=== PATIENT | male | born 1990 | race Caucasian/White ===

== ENCOUNTER 2020-03-02 19:43 | Emergency (ER) | payer SELFPAY ==
[2020-03-02] MEDS ORDERED: TORAdol 30 mg Injection IM ONE (20:22)
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
[2020-03-02] MEDS ORDERED: TORAdol 30 mg Injection ONE (20:53)
[2020-03-02 21:22] VITALS: O2SAT 98
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
[2020-03-02 21:44] VITALS: BP 114/65; PULSE 90
== END 2020-03-02 21:45 | disposition home or self-care (01) ==
LOC: ED 19:43
DX: S46.912A Strain of unspecified muscle, fascia and tendon at shoulder and upper arm level, left arm, initial encounter (principal); V53 Occupant of pick-up truck or van injured in collision with car, pick-up truck or van
CPT/HCPCS: 73030; 96372; 99284; J1885

== ENCOUNTER 2021-09-28 14:22 | Emergency (ER) | payer MEDICAID ==
[2021-09-28] MEDS ORDERED: solu-MEDROL 125 MG, Sterile H2O 10 ml 2 ML IV ONE ×2 (14:44)
[2021-09-28] MEDS ORDERED: DUONEB 0.5-3 MG/3 ml Neb IH ONE ×2 (14:44→14:52)
[2021-09-28] MEDS ORDERED: Sodium Chloride 0.9% 1000 ML 1,000 ML IV STA (14:44)
[2021-09-28] MEDS ORDERED: solu-MEDROL ONE (14:50)
[2021-09-28] MEDS ORDERED: Sodium Chloride 0.9% 1000 ML 1,000 ML ONE (14:50)
[2021-09-28] MEDS ORDERED: Sterile H2O 10 ml IJ ONE (14:50)
[2021-09-28 15:03] VITALS: O2SAT 98
[2021-09-28 15:03] LABS: Absolute Neutrophil Ct (ANC) 7.54 x10^3/uL (1.4-6.9); Basophil (Absolute #) 0.01 x10^3/uL (0-0.4); Eosinophil % 0.8 % (0.00-5.0); Eosinophil (Absolute #) 0.08 x10^3/uL (0-0.5); Hematocrit 47.5 % (42-50); Hemoglobin 15.9 g/dL (12.5-18.0); Lymphocyte (Absolute #) 1.32 x10^3/uL (1.0-4.6); Lymphocytes % 13.1 % (24.0-44.0); Mean Cell Volume 89.6 fL (78-100); Mean Corpuscular Hgb Concent. 33.5 g/dL (32-36); Mean Platelet Volume 10.3 fL (7.5-11.0); Monocyte (Absolute #) 1.13 x10^3/uL (0.0-1.3); Monocytes % 11.2 % (0.0-12.0); Neutrophil % 74.5 % (36.0-66.0); Platelet Count 216 x10^3/uL (150-450); Red Cell Distribution Width 12.5 % (11.5-14.0); White Blood Count 10.1 x10^3/uL (4.0-10.5)
--- NOTE | 2021-09-28 15:03 | ERPHSYRPT ---
- History of Present Illness Time Seen by Provider: 09/28/21 14:32 Source: patient Exam Limitations: no limitations Patient Subjective Stated Complaint: Pt states "I woke up this morning and I coughed and my back and chest has been hurting ever since." Triage Nursing Assessment: Pt presented alert and oriented X 3, skin pwd Pt ambulates with an upright steady gait, able to speak in full setnences pt voice is raspy. pt has sinus congestion Physician History: 31-year-old healthy male presented in the ER with 1 to 2-week history of cough congestion with negative home COVID test x3 presented with increasing coughing waking up from sleep this morning with pain going from anterior to posterior chest and having shortness of breath/painful deep breathing. Denies fever or chills. Patient is tachypneic and tachycardic on presentation. Timing/Duration: week(s) (2), gradual onset, worse Cough Quality/Degree: moderate, productive cough Possible Cause: illness exposure Modifying Factors: Worsens With: coughing, deep breath, exertion Associated Symptoms: chest pain/soreness, cough, headache, muscle aches, shortness of breath, sore throat Allergies/Adverse Reactions: No Known Drug Allergies Allergy (Verified 03/02/20 20:07) Home Medications: Cetirizine HCl [Zyrtec] 10 mg PO DAILY 09/28/21 [History] Hx Tetanus, Diphtheria Vaccination/Date Given: Yes Hx Influenza Vaccination/Date Given: No Hx Pneumococcal Vaccination/Date Given: No Immunizations Up to Date: Yes Travel Risk - International Travel Have you traveled outside of the country in past 3 weeks: No - Coronavirus Screening Are you exhibiting any of the following symptoms?: No Close contact with a COVID-19 positive Pt in past 14-21 Days: No - Vaccine Status Have you recieved a Covid-19 vaccination: No - Review of Systems Constitutional: Fatigue Eyes: No Symptoms Ears, Nose, & Throat: Throat Swelling Respiratory: Cough, Dyspnea, Dyspnea on Exertion (TROTTER) Cardiac: Chest Pain, Palpitations Abdominal/Gastrointestinal: No Symptoms Genitourinary Symptoms: No Symptoms Musculoskeletal: Myalgias Skin: No Symptoms Neurological: No Symptoms Psychological: No Symptoms Endocrine: No Symptoms Hematologic/Lymphatic: No Symptoms Immunological/Allergic: No Symptoms - Past Medical History Pertinent Past Medical History: Yes Other Medical History: scoliosis - Past Surgical History Past Surgical History: No - Social History Smoking Status: Current every day smoker How long have you smoked: 13 yrs Exposure to second hand smoke: Yes Drug Use: none Patient Lives Alone: No - Nursing Vital Signs Nursing Vital Signs: Initial Vital Signs Temperature 98.2 F 09/28/21 14:23 Pulse Rate 118 H 09/28/21 14:23 Respiratory Rate 22 09/28/21 14:23 Blood Pressure 128/80 09/28/21 14:23 O2 Sat by Pulse Oximetry 98 09/28/21 14:23 Pain Scale Pain Intensity 4 - Physical Exam General Appearance: no apparent distress, alert Eye Exam: PERRL/EOMI, eyes nml inspection Ears, Nose, Throat Exam: pharyngeal erythema Neck Exam: normal inspection, non-tender, supple, full range of motion Respiratory Exam: rhonchi, wheezing Cardiovascular Exam: normal heart sounds, tachycardia Back Exam: normal inspection, normal range of motion Extremity Exam: normal inspection, normal range of motion Neurologic Exam: alert, oriented x 3, cooperative Skin Exam: normal color SpO2 Interpretation: normal SpO2: 98 O2 Delivery: Room Air - Course EKG Interpreted by Me: RATE (115), Sinus Tach, NORMAL AXIS, NORMAL INTERVALS, Non-specific ST Changes, Other (Nonspecific T wave changes) Ordered Tests: Active Orders 24 hr Category Date Time Status Is Project Manager STAT Care 09/28/21 14:44 Active EKG-ER Only STAT Care 09/28/21 14:44 Active IV Insertion STAT Care 09/28/21 14:44 Active CHEST 1 VIEW (PORTABLE) Stat Exams 09/28/21 14:44 Taken BLOOD CULTURE Stat Lab 09/28/21 15:10 Received CBC W DIFF Stat Lab 09/28/21 14:30 Completed CMP Stat Lab 09/28/21 14:30 Completed D-DIMER QUANTITATIVE Stat Lab 09/28/21 14:30 Completed Lactic Acid Stat Lab 09/28/21 15:07 Completed MAGNESIUM Stat Lab 09/28/21 14:30 Completed NT PRO BNP Stat Lab 09/28/21 14:30 Completed PROCALCITONIN Stat Lab 09/28/21 14:30 Completed TROPONIN Q3H Lab 09/28/21 14:30 Completed TROPONIN Q3H Lab 09/28/21 17:45 Ordered TROPONIN Q3H Lab 09/28/21 20:45 Ordered TROPONIN Q3H Lab 09/28/21 23:45 Ordered TROPONIN Q3H Lab 09/29/21 02:45 Ordered UA W/RFX CULTURE Stat Lab 09/28/21 15:56 Completed Respiratory Therapy Assessment DAILY RT 09/28/21 15:01 Active Medication Summary Discontinued Medications Generic Name Dose Route Start Last Admin Trade Name Janet PRN Reason Stop Dose Admin Albuterol/Ipratropium 3 ml 09/28/21 14:44 09/28/21 14:53 Ipratropium/Albuterol Sulfate 3 Ml Ampul.Neb IH 09/28/21 14:45 3 ml STAT ONE Administration Albuterol/Ipratropium Confirm 09/28/21 14:52 Ipratropium/Albuterol Sulfate 3 Ml Ampul.Neb Administered 09/28/21 14:53 Dose 3 ml IH .STK-MED ONE Methylprednisolone Sodium 0 mg 09/28/21 14:44 09/28/21 14:55 Succinate 125 mg/ Sterile IV 09/28/21 14:45 125 mg Water 2 ml STAT ONE Administration Sodium Chloride 1,000 mls @ 999 mls/hr 09/28/21 14:44 09/28/21 15:58 Sodium Chloride 0.9% 1000 Ml IV 09/28/21 15:44 Infused .Q1H1M STA Infusion Sodium Chloride Confirm 09/28/21 14:50 Sodium Chloride 0.9% 1000 Ml Administered 09/28/21 14:51 Dose 1,000 mls @ ud .ROUTE .STK-MED ONE Methylprednisolone Sodium Succinate Confirm 09/28/21 14:50 Methylprednis Sod Succ 125 Mg/2 Ml Vial Administered 09/28/21 14:51 Dose 125 mg .ROUTE .STK-MED ONE Sterile Water Confirm 09/28/21 14:50 Water For Injection,Sterile 10 Ml Vial Administered 09/28/21 14:51 Dose 10 ml IJ .STK-MED ONE Lab/Rad Data: Laboratory Result Diagrams 09/28/21 14:30 09/28/21 14:30 Laboratory Results 09/28/21 09/28/21 09/28/21 Range/Units 15:56 15:10 15:07 WBC (4.0-10.5) x10^3/uL RBC (4.1-5.6) x10^6/uL Hgb (12.5-18.0) g/dL Hct (42-50) % MCV (78-100) fL MCH (26-32) pg MCHC (32-36) g/dL RDW (11.5-14.0) % Plt Count (150-450) x10^3/uL MPV (7.5-11.0) fL Gran % (36.0-66.0) % Immature Gran % (Auto) (0.00-0.4) % Nucleat RBC Rel Count (0.00-0.1) % Eos # (Auto) (0-0.5) x10^3/uL Immature Gran # (Auto) (0.00-0.03) x10^3u/L Absolute Lymphs (auto) (1.0-4.6) x10^3/uL Absolute Monos (auto) (0.0-1.3) x10^3/uL Absolute Nucleated RBC (0.00-0.01) x10^3u/L Lymphocytes % (24.0-44.0) % Monocytes % (0.0-12.0) % Eosinophils % (0.00-5.0) % Basophils % (0.0-0.4) % Absolute Granulocytes (1.4-6.9) x10^3/uL Basophils # (0-0.4) x10^3/uL D-Dimer (0.0-0.50) mg/L Sodium (137-145) mmol/L Potassium (3.5-5.1) mmol/L Chloride (98-107) mmol/L Carbon Dioxide (22-30) mmol/L Anion Gap (5-15) MEQ/L BUN (9-20) mg/dL Creatinine (0.66-1.25) mg/dL Estimated GFR ML/MIN Glucose (74-106) mg/dL Lactic Acid 2.0 (0.4-2.0) Calcium (8.4-10.2) mg/dL Magnesium (1.6-2.3) mg/dL Total Bilirubin (0.2-1.3) mg/dL AST (17-59) U/L ALT (0-50) U/L Alkaline Phosphatase (38-126) U/L Troponin I (0.000-0.034) ng/mL NT-Pro-B Natriuret Pep (0-450) pg/mL Serum Total Protein (6.3-8.2) g/dL Albumin (3.5-5.0) g/dL Procalcitonin (0.030-0.080) ng/mL Urinalys Dipstick Clnc MAIN LAB Urine Color YELLOW (YELLOW) Urine Appearance CLEAR (CLEAR) Urine pH 7.0 (5-6) Ur Specific [place] 1.025 (1.005-1.025) POC Urine Protein Conf NEGATIVE (Negative) Urine Ketones NEGATIVE (NEGATIVE) Urine Nitrite NEGATIVE (NEGATIVE) Urine Bilirubin NEGATIVE (NEGATIVE) Urine Urobilinogen 1 (0-1) mg/dL Urine Leukocytes NEGATIVE (NEGATIVE) Urine WBC (Auto) NONE (0-5) /HPF Urine RBC (Auto) NONE (0-2) /HPF U Epithel Cells (Auto) NONE (FEW) /HPF Urine Bacteria (Auto) NONE (NEGATIVE) /HPF Urine RBC NEGATIVE (0-5) Keo/ul Urine Mucus (Auto) SLIGHT (NEGATIVE) /HPF Ur Culture Indicated? NO Urine Glucose NEGATIVE (NEGATIVE) mg/dL Influenza Type A Ag NEGATIVE (NEGATIVE) Influenza Type B Ag NEGATIVE (NEGATIVE) RSV (PCR) NEGATIVE (Negative) SARS-CoV-2 (PCR) NEGATIVE (NEGATIVE) 09/28/21 09/28/21 09/28/21 Range/Units 14:30 14:30 14:30 WBC (4.0-10.5) x10^3/uL RBC (4.1-5.6) x10^6/uL Hgb (12.5-18.0) g/dL Hct (42-50) % MCV (78-100) fL MCH (26-32) pg MCHC (32-36) g/dL RDW (11.5-14.0) % Plt Count (150-450) x10^3/uL MPV (7.5-11.0) fL Gran % (36.0-66.0) % Immature Gran % (Auto) (0.00-0.4) % Nucleat RBC Rel Count (0.00-0.1) % Eos # (Auto) (0-0.5) x10^3/uL Immature Gran # (Auto) (0.00-0.03) x10^3u/L Absolute Lymphs (auto) (1.0-4.6) x10^3/uL Absolute Monos (auto) (0.0-1.3) x10^3/uL Absolute Nucleated RBC (0.00-0.01) x10^3u/L Lymphocytes % (24.0-44.0) % Monocytes % (0.0-12.0) % Eosinophils % (0.00-5.0) % Basophils % (0.0-0.4) % Absolute Granulocytes (1.4-6.9) x10^3/uL Basophils # (0-0.4) x10^3/uL D-Dimer 0.31 (0.0-0.50) mg/L Sodium (137-145) mmol/L Potassium (3.5-5.1) mmol/L Chloride (98-107) mmol/L Carbon Dioxide (22-30) mmol/L Anion Gap (5-15) MEQ/L BUN (9-20) mg/dL Creatinine (0.66-1.25) mg/dL Estimated GFR ML/MIN Glucose (74-106) mg/dL Lactic Acid (0.4-2.0) Calcium (8.4-10.2) mg/dL Magnesium (1.6-2.3) mg/dL Total Bilirubin (0.2-1.3) mg/dL AST (17-59) U/L ALT (0-50) U/L Alkaline Phosphatase (38-126) U/L Troponin I < 0.012 (0.000-0.034) ng/mL NT-Pro-B Natriuret Pep (0-450) pg/mL Serum Total Protein (6.3-8.2) g/dL Albumin (3.5-5.0) g/dL Procalcitonin 0.065 (0.030-0.080) ng/mL Urinalys Dipstick Clnc Urine Color (YELLOW) Urine Appearance (CLEAR) Urine pH (5-6) Ur Specific [place] (1.005-1.025) POC Urine Protein Conf (Negative) Urine Ketones (NEGATIVE) Urine Nitrite (NEGATIVE) Urine Bilirubin (NEGATIVE) Urine Urobilinogen (0-1) mg/dL Urine Leukocytes (NEGATIVE) Urine WBC (Auto) (0-5) /HPF Urine RBC (Auto) (0-2) /HPF U Epithel Cells (Auto) (FEW) /HPF Urine Bacteria (Auto) (NEGATIVE) /HPF Urine RBC (0-5) Keo/ul Urine Mucus (Auto) (NEGATIVE) /HPF Ur Culture Indicated? Urine Glucose (NEGATIVE) mg/dL Influenza Type A Ag (NEGATIVE) Influenza Type B Ag (NEGATIVE) RSV (PCR) (Negative) SARS-CoV-2 (PCR) (NEGATIVE) 09/28/21 09/28/21 Range/Units 14:30 14:30 WBC 10.1 (4.0-10.5) x10^3/uL RBC 5.30 (4.1-5.6) x10^6/uL Hgb 15.9 (12.5-18.0) g/dL Hct 47.5 (42-50) % MCV 89.6 (78-100) fL MCH 30.0 (26-32) pg MCHC 33.5 (32-36) g/dL RDW 12.5 (11.5-14.0) % Plt Count 216 (150-450) x10^3/uL MPV 10.3 (7.5-11.0) fL Gran % 74.5 H (36.0-66.0) % Immature Gran % (Auto) 0.3 (0.00-0.4) % Nucleat RBC Rel Count 0.0 (0.00-0.1) % Eos # (Auto) 0.08 (0-0.5) x10^3/uL Immature Gran # (Auto) 0.03 (0.00-0.03) x10^3u/L Absolute Lymphs (auto) 1.32 (1.0-4.6) x10^3/uL Absolute Monos (auto) 1.13 (0.0-1.3) x10^3/uL Absolute Nucleated RBC 0.00 (0.00-0.01) x10^3u/L Lymphocytes % 13.1 L (24.0-44.0) % Monocytes % 11.2 (0.0-12.0) % Eosinophils % 0.8 (0.00-5.0) % Basophils % 0.1 (0.0-0.4) % Absolute Granulocytes 7.54 H (1.4-6.9) x10^3/uL Basophils # 0.01 (0-0.4) x10^3/uL D-Dimer (0.0-0.50) mg/L Sodium 138 (137-145) mmol/L Potassium 3.8 (3.5-5.1) mmol/L Chloride 103 (98-107) mmol/L Carbon Dioxide 26 (22-30) mmol/L Anion Gap 12.8 (5-15) MEQ/L BUN 12 (9-20) mg/dL Creatinine 0.92 (0.66-1.25) mg/dL Estimated GFR > 60.0 ML/MIN Glucose 107 H (74-106) mg/dL Lactic Acid (0.4-2.0) Calcium 9.5 (8.4-10.2) mg/dL Magnesium 2.0 (1.6-2.3) mg/dL Total Bilirubin 0.70 (0.2-1.3) mg/dL AST 32 (17-59) U/L ALT 27 (0-50) U/L Alkaline Phosphatase 98 (38-126) U/L Troponin I (0.000-0.034) ng/mL NT-Pro-B Natriuret Pep 31.2 (0-450) pg/mL Serum Total Protein 7.6 (6.3-8.2) g/dL Albumin 4.4 (3.5-5.0) g/dL Procalcitonin (0.030-0.080) ng/mL Urinalys Dipstick Clnc Urine Color (YELLOW) Urine Appearance (CLEAR) Urine pH (5-6) Ur Specific [place] (1.005-1.025) POC Urine Protein Conf (Negative) Urine Ketones (NEGATIVE) Urine Nitrite (NEGATIVE) Urine Bilirubin (NEGATIVE) Urine Urobilinogen (0-1) mg/dL Urine Leukocytes (NEGATIVE) Urine WBC (Auto) (0-5) /HPF Urine RBC (Auto) (0-2) /HPF U Epithel Cells (Auto) (FEW) /HPF Urine Bacteria (Auto) (NEGATIVE) /HPF Urine RBC (0-5) Keo/ul Urine Mucus (Auto) (NEGATIVE) /HPF Ur Culture Indicated? Urine Glucose (NEGATIVE) mg/dL Influenza Type A Ag (NEGATIVE) Influenza Type B Ag (NEGATIVE) RSV (PCR) (Negative) SARS-CoV-2 (PCR) (NEGATIVE) - Progress Progress: improved Air Movement: good Progress Note: 09/28/21 16:25 31-year-old is evaluated for worsening cough with some difficulty breathing. Broad work-up was done with a negative COVID-19 testing. Normal white count, troponin, D-dimers. Chest x-ray negative for any acute cardiopulmonary findings per preliminary report. EKG showed sinus tach, given fluids and neb treatment, on reevaluation feeling much better. Patient still have a heart rate in low 100s but clinically looks better. Given Solu-Medrol as well. I believe patient has viral etiology symptoms, recommended supportive care and will give a short course of steroids along with inhaler and outpatient follow-up. Discussed signs symptoms of worsening needing return to ER which he seems understanding. Patient is maintaining oxygen saturation around 98% on room air and is not t achypneic or in any distress on reevaluation. Blood Culture(s) Obtained: No Antibiotics given: No Counseled pt/family regarding: lab results, diagnosis, need for follow-up, rad results - Departure Departure Disposition: Home Clinical Impression: Viral syndrome, Bronchitis Condition: Stable Critical Care Time: No Referrals: DOCTOR,NO FAMILY [Primary Care Provider] - Follow up/PCP as directed TABATHA KHAN DO [ACTIVE STAFF] - Follow up/PCP as directed (Call for appointment for reevaluation in 1 to 2 days.) Instructions: Cough, Adult (DC), Viral Syndrome (DC) Additional Instructions: None plenty of fluids to keep yourself well-hydrated. Take Tylenol/ibuprofen as needed for aches and pains. Use inhaler as needed. Continue with steroids. Follow-up with primary care for reevaluation. Return to ER for worsening cough or if having difficulty breathing, persistent chest pain etc. Prescriptions: Albuterol Sulfate [Albuterol Sulfate Hfa] 8.5 gm IH Q6H PRN 7 Days #1 inh PRN Reason: Cough Prednisone 20 mg [Deltasone 20 mg] 60 mg PO DAILY 5 Days #15 tablet
[2021-09-28 15:18] LABS: ALBUMIN 4.4 g/dL (3.5-5.0); ALKALINE PHOSPHATASE 98 U/L (38-126); ANION GAP 12.8 MEQ/L (5-15); BLOOD UREA NITROGEN 12 mg/dL (9-20); CHLORIDE 103 mmol/L (98-107); Calcium 9.5 mg/dL (8.4-10.2); Carbon Dioxide 26 mmol/L (22-30); Creatinine 1 0.92 mg/dL (0.66-1.25); EST GLOMERULAR FILTRATION RATE > 60.0 ML/MIN; Glucose 107 mg/dL (74-106); NT PRO BNP 31.2 pg/mL (0-450); Potassium 3.8 mmol/L (3.5-5.1); SGOT/AST 32 U/L (17-59); SGPT/ALT 27 U/L (0-50); SODIUM 138 mmol/L (137-145); Total Protein 7.6 g/dL (6.3-8.2)
[2021-09-28 15:26] VITALS: BP 120/75; PULSE 90
[2021-09-28 15:51] LABS: INFLUENZA A NEGATIVE (NEGATIVE); INFLUENZA B NEGATIVE (NEGATIVE); RESPIRATORY SYNCTIAL VIRUS NEGATIVE (Negative); SARS-CoV-2 Xpert Express NEGATIVE (NEGATIVE)
[2021-09-28 16:04] LABS: Appearance CLEAR (CLEAR); Bilirubin NEGATIVE (NEGATIVE); Glucose NEGATIVE (NEGATIVE); Ketones NEGATIVE (NEGATIVE); Mucus SLIGHT /HPF (NEGATIVE); Protein,Urine Dip NEGATIVE (Negative); RBC NEGATIVE Ery/ul (0-5); Specific Gravity 1.025 (1.005-1.025); Urobilinogen 1 mg/dL (0-1)
[2021-09-28 16:05] LABS: Dipstick done @ ? MAIN LAB; Nitrite NEGATIVE (NEGATIVE); Urine Cultured Indicated? NO
--- NOTE | 2021-09-28 18:08 | XRAY ---
Indication: Chest pain and cough. Comparison: None Portable chest demonstrates minimal right base subsegmental atelectasis/scarring. Remaining heart and lungs unremarkable. Bony thorax intact. Comment: Preliminary interpretation made by [facility]. No critical discrepancy.
== END 2021-09-28 16:40 | disposition home or self-care (01) ==
LOC: ED 14:22
DX: J20.8 Acute bronchitis due to other specified organisms (principal); R05.9 Cough, unspecified; R07.9 Chest pain, unspecified; Z72.0 Tobacco use; Z28.310 Unvaccinated for COVID-19; Z79.52 Long term (current) use of systemic steroids; R06.82 Tachypnea, not elsewhere classified; R00.0 Tachycardia, unspecified
CPT/HCPCS: 0241U; 36000; 36415; 71045; 80053; 81015; 83605; 83735; 83880; 84145; 84484; 85025; 85379; 87040; 93005; 93041; 94640; 96360; 96374; 99284; J2930; A9270-GY

== ENCOUNTER 2023-12-23 11:00 | Emergency (ER) | payer BC, MEDICAID, OTHER ==
[2023-12-23 11:19] VITALS: TEMP 97.6
--- NOTE | 2023-12-23 11:27 | XRAY ---
Indication: Cough. Comparison: September 28, 2021 Portable chest inflated and is now clear. Heart not enlarged. Bony thorax intact. No acute findings.
[2023-12-23 11:45] LABS: Absolute Neutrophil Ct (ANC) 8.14 x10^3/uL (1.78-5.38); BASOPHIL % 0.3 % (0.2-1.2); Basophil (Absolute #) 0.03 x10^3/uL (0.01-0.08); Eosinophil % 1.7 % (0.8-7.0); Eosinophil (Absolute #) 0.19 x10^3/uL (0.04-0.54); Hematocrit 48.5 % (40.1-51.0); Hemoglobin 16.4 g/dL (13.7-17.5); IMMATURE GRAN # 0.04 x10^3u/L (0.001-0.031); IMMATURE GRAN % 0.4 % (0.001-0.429); Lymphocytes % 18.5 % (21.8-53.1); Mean Corpuscular Hemoglobin 30.1 pg (25.7-32.2); Mean Corpuscular Hgb Concent. 33.8 g/dL (32.3-36.5); Mean Platelet Volume 10.5 fL (9.4-12.4); Monocyte (Absolute #) 0.87 x10^3/uL (0.30-0.82); Monocytes % 7.7 % (5.3-12.2); Neutrophil % 71.4 % (34.0-67.9); Platelet Count 209 x10^3/uL (163-337); Red Blood Count 5.45 x10^6/uL (4.63-6.08); Red Cell Distribution Width 12.8 % (11.6-14.4); White Blood Count 11.4 x10^3/uL (4.23-9.07)
[2023-12-23 12:00] LABS: ALBUMIN 4.4 g/dL (3.5-5.0); ANION GAP 15.2 MEQ/L (5-15); BILIRUBIN,TOTAL 0.9 mg/dL (0.2-1.3); Calcium 9.6 mg/dL (8.4-10.2); Creatinine 1 1.08 mg/dL (0.66-1.25); EST GLOMERULAR FILTRATION RATE 92.9 ML/MIN; Total Protein 7.1 g/dL (6.3-8.2)
[2023-12-23 12:07] VITALS: BP 116/93; PULSE 86; RESP 22; O2SAT 97
[2023-12-23 12:37] LABS: Group A Strep NOT DETECTED (NEGATIVE)
[2023-12-23 12:51] LABS: INFLUENZA A NEGATIVE (NEGATIVE); INFLUENZA B NEGATIVE (NEGATIVE); RESPIRATORY SYNCTIAL VIRUS NEGATIVE (NEGATIVE); SARS-CoV-2 Xpert Express NEGATIVE (NEGATIVE)
--- NOTE | 2023-12-23 13:02 | ERPHSYRPT ---
- History of Present Illness Time Seen by Provider: 12/23/23 12:27 Source: patient Exam Limitations: no limitations Patient Subjective Stated Complaint: C/O cough. Patient states he is fatigued but had trouble sleeping last night and has a cough this am. Denies fever. Charlie es chest pain. Triage Nursing Assessment: Patient ambulated back to ER. He is alert and oriented. No SOB. An occassional, dry, non-productive cough is present. Patient noted to be a bit hoarse; indicates from coughing. Skin tone normal. LATESHA GASTELUM. Physician History: 33-year-old male presented in the ER with complaints of cough. Patient report he was not feeling well last night, aches and pains all over, soreness in the throat. He woke up in the middle of the night with a coughing spell which lasted for good 5 to 7 minutes and improved. Patient denies any difficulty breathing currently. No fever or chills reported. Does have some soreness in the throat. No known sick contact. Timing/Duration: today Cough Quality/Degree: dry cough Associated Symptoms: cough, sore throat Allergies/Adverse Reactions: No Known Drug Allergies Allergy (Verified 12/23/23 11:08) Home Medications: Cetirizine HCl [Zyrtec] 10 mg PO DAILY 09/28/21 [History] Hx Tetanus, Diphtheria Vaccination/Date Given: Yes Hx Influenza Vaccination/Date Given: No Hx Pneumococcal Vaccination/Date Given: No Immunizations Up to Date: Yes Travel Risk - International Travel Have you traveled outside of the country in past 3 weeks: No - Emerging Infectious Disease Are you exhibiting symptoms associated with any current EIDs: Yes Symptoms: Cough: New Onset, Other (Please Comment) Comment: fatigue, sore throat - Review of Systems Constitutional: No Symptoms Eyes: No Symptoms Ears, Nose, & Throat: Throat Swelling Respiratory: Cough Cardiac: No Symptoms Abdominal/Gastrointestinal: No Symptoms Musculoskeletal: No Symptoms Skin: No Symptoms Neurological: No Symptoms Endocrine: No Symptoms Hematologic/Lymphatic: No Symptoms Immunological/Allergic: No Symptoms - Past Medical History Pertinent Past Medical History: Yes Other Medical History: scoliosis, seasonal allergies - Past Surgical History Past Surgical History: No - Social History Smoking Status: Current every day smoker How long have you smoked: 17 years Exposure to second hand smoke: Yes Drug Use: none Patient Lives Alone: No - Social Determinants of Health Will the patient participate in the screening: Yes Do you worry about a steady place to live?: No Do you have any problems with any of the following?: No known problems In the past 12 months,have you had to go without utilities?: No Transportation Issues: No Has anyone in your support network made you feel unsafe?: No Have you or anyone in your house had to go without enough: No - Nursing Vital Signs Nursing Vital Signs: Initial Vital Signs Temperature 97.6 F 12/23/23 11:00 Pulse Rate 101 H 12/23/23 11:00 Respiratory Rate 16 12/23/23 11:00 Blood Pressure 152/95 12/23/23 11:00 O2 Sat by Pulse Oximetry 97 12/23/23 11:00 Pain Scale Pain Intensity 2 - Physical Exam General Appearance: no apparent distress Eye Exam: PERRL/EOMI Ears, Nose, Throat Exam: normal ENT inspection Neck Exam: normal inspection, supple, full range of motion Respiratory Exam: normal breath sounds, lungs clear Cardiovascular Exam: regular rate/rhythm, normal heart sounds Gastrointestinal/Abdomen Exam: soft, normal bowel sounds, No tenderness Extremity Exam: normal inspection, normal range of motion Neurologic Exam: alert, oriented x 3, cooperative Skin Exam: normal color SpO2 Interpretation: normal SpO2: 97 O2 Delivery: Room Air Ordered Tests: Active Orders 24 hr Category Date Time Status IV Insertion STAT Care 12/23/23 11:10 Active CHEST 1 VIEW (PORTABLE) Stat Exams 12/23/23 11:10 Completed CBC W DIFF Stat Lab 12/23/23 11:44 Completed CMP Stat Lab 12/23/23 11:44 Completed Lab/Rad Data: Laboratory Result Diagrams 12/23/23 11:44 12/23/23 11:44 Laboratory Results 12/23/23 12/23/23 12/23/23 Range/Units 11:55 11:44 11:44 WBC 11.4 H (4.23-9.07) x10^3/uL RBC 5.45 (4.63-6.08) x10^6/uL Hgb 16.4 (13.7-17.5) g/dL Hct 48.5 (40.1-51.0) % MCV 89.0 (79.0-92.2) fL MCH 30.1 (25.7-32.2) pg MCHC 33.8 (32.3-36.5) g/dL RDW 12.8 (11.6-14.4) % Plt Count 209 (163-337) x10^3/uL MPV 10.5 (9.4-12.4) fL Gran % 71.4 H (34.0-67.9) % Immature Gran % (Auto) 0.4 (0.001-0.429) % Nucleat RBC Rel Count 0.0 (0.00-0.2) % Eos # (Auto) 0.19 (0.04-0.54) x10^3/uL Immature Gran # (Auto) 0.04 H (0.001-0.031) x10^3u/L Absolute Lymphs (auto) 2.10 (1.32-3.57) x10^3/uL Absolute Monos (auto) 0.87 H (0.30-0.82) x10^3/uL Absolute Nucleated RBC 0.00 (0.00-0.012) x10^3u/L Lymphocytes % 18.5 L (21.8-53.1) % Monocytes % 7.7 (5.3-12.2) % Eosinophils % 1.7 (0.8-7.0) % Basophils % 0.3 (0.2-1.2) % Absolute Granulocytes 8.14 H (1.78-5.38) x10^3/uL Basophils # 0.03 (0.01-0.08) x10^3/uL Sodium 141 (135-145) mmol/L Potassium 4.0 (3.5-5.1) mmol/L Chloride 105 (98-107) mmol/L Carbon Dioxide 25 (22-30) mmol/L Anion Gap 15.2 H (5-15) MEQ/L BUN 11 (9-20) mg/dL Creatinine 1.08 (0.66-1.25) mg/dL Estimated GFR 92.9 ML/MIN Glucose 113 H (74-106) mg/dL Calcium 9.6 (8.4-10.2) mg/dL Total Bilirubin 0.90 (0.2-1.3) mg/dL AST 25 (17-59) U/L ALT 26 (0-50) U/L Alkaline Phosphatase 73 (38-126) U/L Serum Total Protein 7.1 (6.3-8.2) g/dL Albumin 4.4 (3.5-5.0) g/dL Influenza Type A Ag NEGATIVE (NEGATIVE) Influenza Type B Ag NEGATIVE (NEGATIVE) RSV (PCR) NEGATIVE (NEGATIVE) SARS-CoV-2 (PCR) NEGATIVE (NEGATIVE) Group A Strep Antibody NOT DETECTED (NEGATIVE) - Progress Progress: re-examined, unchanged Air Movement: good Progress Note: 12/23/23 13:00 33-year-old is evaluated in ER for cough and sore throat. Patient is not in any distress. Lungs clear to auscultation. Does have some pharyngeal erythema. Has white count of 11, chemistries unremarkable. Chest x-ray negative. Negative flu COVID and RSV/strep. It is possible patient had some kind of aspiration while sleeping and had a reactive cough. Are it could have some viral URI with cough. Recommended supportive care and outpatient follow-up. Discussed signs symptoms of worsening needing return to ER which she seems understanding. Stable for discharge. Blood Culture(s) Obtained: No Antibiotics given: No Counseled pt/family regarding: lab results, diagnosis, need for follow-up, rad results, smoking cessation Medical Desision Making - Diagnostic Testing Diagnostic test were ordered, analyzed, and reviewed by me: Yes Radiological Interpretation: Reviewed by me - Departure Departure Disposition: Home Clinical Impression: Cough in adult patient Condition: Stable Critical Care Time: No Referrals: DOCTOR,NO FAMILY [Primary Care Provider] - Follow up with PCP 1 day Instructions: Cough, Adult (DC) Additional Instructions: follow up with PCP for reevaluation. return for worsening
== END 2023-12-23 13:11 | disposition home or self-care (01) ==
LOC: ED 11:00
DX: R05.1 Acute cough (principal); M79.10 Myalgia, unspecified site; J02.9 Acute pharyngitis, unspecified; Z72.0 Tobacco use
CPT/HCPCS: 0241U; 36000; 36415; 71045; 80053; 85025; 87651; 99283